=== PATIENT | male | born 1975 | race Caucasian/White ===

== ENCOUNTER 2020-07-11 06:00 | Outpatient (CLI) | payer OTHER ==
[2020-07-12 14:48] LABS: SARS-CoV-2 MS2 Positive; SARS-CoV-2 N Gene Negative; SARS-CoV-2 S Gene Negative; SARS-CoV-2 by NAA Not Detected (NotDetected); SARS-CoV-2 orf1ab Negative
--- NOTE | 2020-07-14 15:45 | EKG ---
Test Reason : Blood Pressure : / mmHG Vent. Rate : 047 BPM Atrial Rate : 047 BPM P-R Int : 168 ms QRS Dur : 098 ms QT Int : 430 ms P-R-T Axes : 045 040 029 degrees QTc Int : 380 ms Sinus bradycardia Otherwise normal ECG No previous ECGs available Confirmed by JACQUES TERAN M.D. ([id number]) on 07/14/2020 3:44:49 PM Referred By: RENA Confirmed By:JACQUES TERAN M.D.
== END 2020-07-11 06:01 | disposition home or self-care (01) ==
LOC: LABBT 06:00
PROVIDERS: ATTEND Student in an Organized Health Care Education/Training Program
DX: Z01.818 Encounter for other preprocedural examination (principal); J38.1 Polyp of vocal cord and larynx; K13.21 Leukoplakia of oral mucosa, including tongue; R49.0 Dysphonia; Z20.828 Contact with and (suspected) exposure to other viral communicable diseases
CPT/HCPCS: 87635; 93005; 93010; U0003

== ENCOUNTER 2020-07-15 07:22 | Day surgery (SDC) | payer OTHER ==
[2020-07-14 11:47] VITALS: BMI 29.8
[2020-07-15] MEDS ORDERED: Midazolam HCl 2 mg/2 ml Vial ONE (09:26)
[2020-07-15] MEDS ORDERED: Fentanyl 100 MCG/2 ML VIAL ONE ×2 (09:26→11:02)
[2020-07-15] MEDS ORDERED: EPINEPHrine 1 MG/ML AMP ONE ×3 (09:29→10:24)
[2020-07-15] MEDS ORDERED: Meperidine HCl/PF 25 MG/ML VIAL ONE (11:05)
[2020-07-15] MEDS ORDERED: Hydrocodone-Acetamin 15 ML UDCUP ONE (12:00)
[2020-07-15] MEDS ORDERED: Lidocaine 1% PF 5 ML VIAL ONE (14:22)
[2020-07-15] MEDS ORDERED: Dexamethasone 20 MG/5 ML VIAL ONE (14:22)
[2020-07-15] MEDS ORDERED: Ondansetron PF 4 MG/2 ML Vial ONE (14:22)
[2020-07-15] MEDS ORDERED: PROPOFOL 200 MG/20 ML VIAL ONE (14:22)
[2020-07-15] MEDS ORDERED: Succinylcholine Chloride 20 MG/ML 10 ml SYRINGE FS ONE (14:22)
[2020-07-15] MEDS ORDERED: Glycopyrrolate 0.2 MG/ML 5 ML SYRINGE ONE (14:22)
[2020-07-15] MEDS ORDERED: Rocuronium Bromide 10 MG/ML (10ML VIAL) ONE (14:22)
--- NOTE | 2020-07-15 23:01 | OP ---
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 PROCEDURES PERFORMED: Direct suspension microlaryngoscopy and microlaryngeal flap and removal of polyp. PERMIT: Procedure, benefits, and risks including those of bleeding, infection, injury, anesthesia, allergic reaction, damage to oral cavity, voice changes and alternatives were discussed and reviewed with the patient and family, who expressed understanding of the information. The consent form was signed and witnessed and a paper copy of the consent form is available for review in the paper chart. INDICATIONS: This is a 44-year-old male patient presenting with long-standing dysphonia and intermittent cough and flexible laryngoscopy showed large right mid-core true vocal fold polyp, which was evaluated as obstructing the phonating surface of the chandrakant glottidis. The patient was brought to the operating room now for operative intervention. ASSISTANTS: None. FINDINGS: Small right true vocal fold polyp. DESCRIPTION OF PROCEDURE: The patient was brought to the operating room and laid supine on the operating room table. General endotracheal anesthesia was administered through a 5.5 microlaryngeal tube. The bed was turned 90 degrees and the mouth guard was placed to protect the patient's teeth and a laryngoscope was used to examine the patient's oropharynx, larynx and hypopharynx as well as the patient's true vocal folds. The patient was then suspended with a Keena given the patient's anterior location of the larynx and difficulty with finding adequate exposure, and a combination of microscope and telescope was used to examine the larynx and found a small right true vocal fold polyp that was affecting the phonating surface. A microlaryngeal flap was made after application of an epinephrine-soaked pledget to the area, which was then removed with laryngeal forceps. A sickle knife was used to make a small incision at the lateral aspect of the right true vocal fold away from the phonating surface and the mucosa was then elevated with straight and curved microlaryngeal scissors. Flap of tissue was created over the mucosal surface of the nodule or polyp and then cupped forceps were used to grab the tissue underneath the phonating surface of the mucosa and then removed. A small amount of tissue was sent for pathology. Some tissue was suctioned and removed as part of the suctioning process to remove a small amount of bleeding for visualization and could not be sent for pathologic evaluation. After the tissue beneath the mucosal phonating surface of the true vocal fold was removed, the flap was replaced and seem to approximate the incision. The glottis and subglottis were examined thoroughly. Both true vocal folds were retracted laterally with the blunt soft edge of the suction on olive-tipped suction on both sides and no other masses or obstructions were noted. The subglottis was clearly patent all the way to the endotracheal tube with the cuff, which was inflated in the subglottic area. After the procedure was performed, the telescope, microscope, and all of the microlaryngeal instruments were removed. The laryngoscope was taken out of suspension and removed. The dental guard was removed. The patient's teeth and lips and tongue and oral cavity were examined, and there was no damage to any of the sites. The patient tolerated the procedure well and there was minimal bleeding, less than 1 mL. The patient was turned back for emergence and extubated without issue. Job ID: [id number] [facility]
== END 2020-07-15 12:17 | disposition home or self-care (01) ==
LOC: SDC 07:22
PROVIDERS: ATTEND Student in an Organized Health Care Education/Training Program
PROC: 0CBT8ZZ Excision of Right Vocal Cord, Via Natural or Artificial Opening Endoscopic (ICD-10-PCS; principal; 2020-07-15)
PROC: 0CU Mouth and Throat, Supplement (ICD-10-PCS; principal; 2020-07-15)
DX: J38.1 Polyp of vocal cord and larynx (principal); K13.21 Leukoplakia of oral mucosa, including tongue; Z79.899 Other long term (current) drug therapy; Z88.0 Allergy status to penicillin; Z87.891 Personal history of nicotine dependence
CPT/HCPCS: 88305; J0171; J1100; J2175; J2250; J2405; J2704; J3010